=== PATIENT | female | born 1960 | race Caucasian/White ===

== ENCOUNTER 2018-10-09 15:07 | Outpatient (CLI) | payer BC ==
--- NOTE | 2018-10-09 16:10 | BD ---
EXAM: Bone densitometry using DEXA HISTORY: 58 yo female. Screening for postmenopausal osteoporosis FINDINGS: L1--bone mineral density 0.585 g/sq cm; T score 3.0 ; Z score 4.1 L2--bone mineral density 1.431 g/sq cm; T score 3.7 ; Z score 4.9 L3--bone mineral density 1.288 g/sq cm; T score 1.9 ; Z score 3.1 L4--bone mineral density 1.395 g/sq cm; T score 3.0 ; Z score 4.3 Total L1-L4--bone mineral density 1.356 g/sq cm; T score 2.8 ; Z score 4.0 Left femoral neck--bone mineral density1.004; T score 1.4 ; Z score 2.6 Total proximal left femur--bone mineral density 1.191; T score 2.0 ; Z score 2.8 IMPRESSION: Normal BMD.
--- NOTE | 2018-10-09 17:21 | MMO ---
Bilateral MAMMO Bilat Screen [facility]. CLINICAL HISTORY: Patient is 58 years old and is seen for screening. VIEWS: The views performed were: bilateral craniocaudal with tomosynthesis and bilateral mediolateral oblique with tomosynthesis. MAMMOGRAM FINDINGS: The breasts are almost entirely fat. There are no suspicious masses, suspicious calcifications, or new areas of architectural distortion. IMPRESSION: THERE IS NO MAMMOGRAPHIC EVIDENCE OF MALIGNANCY. A ROUTINE FOLLOW-UP MAMMOGRAM IN 1 YEAR IS RECOMMENDED. THE RESULTS OF THIS EXAM WERE SENT TO THE PATIENT. ACR BI-RADS Category 1 - Negative MAMMOGRAPHY NOTE: 1. A negative mammogram report should not delay a biopsy if a dominant of clinically suspicious mass is present. 2. Approximately 10% to 15% of breast cancers are not detected by mammography. 3. Adenosis and dense breasts may obscure an underlying neoplasm.
== END 2018-10-09 15:08 | disposition home or self-care (01) ==
LOC: BICMAMMO 15:07
PROVIDERS: ATTEND Specialist
DX: Z12.31 Encounter for screening mammogram for malignant neoplasm of breast (principal); Z13.820 Encounter for screening for osteoporosis
CPT/HCPCS: 77063; 77067; 77080